=== PATIENT | female | born 1965 ===

== ENCOUNTER 2017-06-25 06:44 | Day surgery (SDC) | payer OTHER ==
[2017-06-24 14:19] VITALS: BMI 26.5
[2017-06-25] MEDS ORDERED: Lactated Ringer's 1,000 ML IV ONE ×3 (08:05→08:46)
[2017-06-25] MEDS ORDERED: cefOXitin IV 1 gm in Dextrose 1 GM/50 ML BAG IVPB ONE (08:07)
[2017-06-25] MEDS ORDERED: Labetalol 25mg/5ml Syringe IVP PRN (08:47)
[2017-06-25] MEDS ORDERED: HYDROmorphone 1 mg/ml ISec IVP PRN (08:47)
[2017-06-25 09:47] LABS: HEMOGLOBIN 11.2 g/dL (11.0-16.0); MEAN CELL VOLUME 78.5 fL (81.0-99.0); MEAN CORPUSCULAR HEMOGLOBIN 25.7 pg (27.0-31.0); MEAN CORPUSCULAR HGB CONC 32.7 g/dL (33.0-37.0); MEAN PLATELET VOLUME 9.5 fL (7.2-11.7); RBC 4.36 Mil/uL (3.80-5.20); RED CELL DISTRIBUTION WIDTH 15.3 % (11.5-14.5); WHITE BLOOD COUNT 7.2 K/uL (4.8-10.8)
[2017-06-25 10:10] LABS: ALB/GLOB RATIO 1.2 (1.0-2.1); ALBUMIN 3.3 g/dL (3.5-5.0); BLOOD UREA NITROGEN 10 mg/dL (7-17); GFR AFRICAN-AMERICAN > 60; GFR NON-AFRICAN AMERICAN > 60
[2017-06-25 10:11] LABS: ALT/SGPT 25 U/L (9-52); AST/SGOT 31 U/L (14-36); CALCIUM 8.2 mg/dl (8.6-10.4)
[2017-06-25 11:14] VITALS: RESP 16
[2017-06-25 12:22] VITALS: BP 157/79; PULSE 60; TEMP 97.6; O2SAT 99
--- NOTE | 2017-06-25 18:29 | PCM.SURG1 ---
Surgeon's Initial Post Op Note - Surgeon's Notes Surgeon: dr chavez Director Imaging: none Type of Anesthesia: General LMA Anesthesia Administered By: dr patterson Pre-Operative Diagnosis: 51 yr irrgular bleeding/fibroid uterus Operative Findings: see the op reort Post-Operative Diagnosis: sme Operation Performed: myasure/d&c, hysterscopy Specimen/Specimens Removed: ecc. emc. polyp Estimated Blood Loss: EBL {In ML}: 20 Blood Products Given: N/A Drains Used: No Drains Post-Op Condition: Good Date of Surgery/Procedure: 06/25/17 Time of Surgery/Procedure: 10:40
--- NOTE | 2017-06-26 05:11 | OP ---
PROCEDURE DATE: PREOPERATIVE DIAGNOSIS: A 51-year-old 2, para 2, with irregular menstrual periods and endometrial thickening, rule out fibroid. POSTOPERATIVE DIAGNOSIS: A 51-year-old 2, para 2, with irregular menstrual periods and endometrial thickening, rule out fibroid. SURGEON: Nael Stone MD ELECTRICAL TECHNOLOGY INSTRUCTOR: None. TYPE OF ANESTHESIA: General. ANESTHESIOLOGIST: Dr. Bell. COMPLICATIONS: None. PROCEDURE PERFORMED: D and C, hysteroscopy, and MyoSure. DEFICIT: 550 mL. DESCRIPTION OF PROCEDURE: After informed consent was obtained, the patient was brought to the operating room, placed on the table where general anesthesia was administered. When anesthesia was found to be sufficient, she was prepped and draped in normal sterile fashion. Examination of the uterus revealed that uterus to be anteverted and in 7 weeks size. Anterior lip of the cervix was grasped with a tenaculum. Gentle dilatation of the cervix was done. There was a small polyp in the lower part of the uterus. It was very hard to dilate, so the gentle dilation of the cervix was done. Then after that, it was found that the polypoid tissue in the uterus. ____ pictures were taken. After that MyoSure was used to remove the polypoid tissue,it was sent to Pathology. Then sharp curettage of uterus was done and ECC was done and sent to pathology too. After that, the tenaculum was taken out of the anterior lip of the cervix. Deficit was 550. The patient tolerated the procedure well. Lap, sponge, and instrument counts were correct x2. The patient observed in the . CBC and CMP were found within normal. The patient is to follow up with Dr. Stone, antibiotics or pursue any new medication and also will follow up in two weeks. Nael Stone MD
== END 2017-06-25 12:08 | disposition home or self-care (01) ==
LOC: C.SDS 06:44
PROVIDERS: ATTEND Obstetrics & Gynecology
DX: N84.0 Polyp of corpus uteri (principal); N92.0 Excessive and frequent menstruation with regular cycle; D25.0 Submucous leiomyoma of uterus
CPT/HCPCS: 36415; 58558; 80053; 85027; 88305; J7120

== ENCOUNTER 2017-09-29 20:22 | Emergency (ER) | payer OTHER ==
[2017-09-29 20:23] VITALS: BMI 26.5
[2017-09-29 20:42] VITALS: O2SAT 98
[2017-09-29 21:04] LABS: SQUAMOUS EPITHIAL < 1 /hpf (0-5); URINE BILIRUBIN NEGATIVE (NEGATIVE); URINE BLOOD NEGATIVE (NEGATIVE); URINE CLARITY Clear (Clear); URINE COLOR Colorless (YELLOW); URINE GLUCOSE (UA) NORMAL (Normal); URINE LEUKOCYTE ESTERASE NEG Leu/uL (Negative); URINE PROTEIN NEGATIVE (NEGATIVE); URINE UROBILINOGEN NORMAL mg/dL (0.2-1.0)
--- NOTE | 2017-09-29 21:11 | C.PDOC ---
History Of Present Illness 51 y/o female with Hx of Fibroid Uterus and UTI presents to ED for complaints of diffused abdominal pain that began two days ago. Patient also reports feeling "something bulging from umbilicus. Denies fever, chills, nausea, vomiting or any other physical complaints. no analgesia needed in er. Time Seen by Provider: 09/29/17 20:54 Chief Complaint (Nursing): Abdominal Pain History Per: Patient History/Exam Limitations: no limitations Onset/Duration Of Symptoms: Days (2) Current Symptoms Are (Timing): Still Present Location Of Pain/Discomfort: Diffuse Radiation Of Pain To:: None Associated Symptoms: denies: Fever, Chills, Nausea, Vomiting, Diarrhea, Urinary Symptoms Exacerbating Factors: None Alleviating Factors: None Last Bowel Movement: Today Recent travel outside of the [place]: No Abnormal Vaginal Bleeding: No Past Medical History Reviewed: Historical Data, Nursing Documentation, Vital Signs Vital Signs: Last Vital Signs Temp 98.6 F 09/29/17 23:59 Pulse 72 09/29/17 23:59 Resp 18 09/29/17 23:59 BP 137/77 09/29/17 23:59 Pulse Ox 98 09/29/17 23:59 - Medical History PMH: No Chronic Diseases Denies: Chronic Kidney Disease Surgical History: No Surg Hx Family History: States: No Known Family Hx - Social History Hx Alcohol Use: No Hx Substance Use: No Review Of Systems Except As Marked, All Systems Reviewed And Found Negative. Gastrointestinal: Positive for: Abdominal Pain (Diffuse ) Physical Exam - Physical Exam Appears: Well, Non-toxic, No Acute Distress Skin: Normal Color, Warm, Dry Head: Atraumatic, Normacephalic Eye(s): bilateral: Normal Inspection, PERRL, EOMI Oral Mucosa: Moist Neck: Supple Chest: Symmetrical Cardiovascular: Rhythm Regular Respiratory: Normal Breath Sounds, No Decreased Breath Sounds, No Rales, No Rhonchi, No Wheezing Gastrointestinal/Abdominal: Soft, Tenderness (Mild, non focal ), Hernia ( Reproducible umbilical ) Extremity: Normal ROM, No Deformity Extremity: Bilateral: Atraumatic, Normal Color And Temperature, Normal ROM Neurological/Psych: Oriented x3, Normal Speech (Speaking in full sentences ), Other (No focal deficits ) Gait: Steady ED Course And Treatment - Laboratory Results Result Diagrams: 09/29/17 21:10 09/29/17 21:10 O2 Sat by Pulse Oximetry: 98 (RA) Pulse Ox Interpretation: Normal Medical Decision Making Medical Decision Making: Ordered Blood work and urinalysis. ct shows cyst and fibroid. offered pt ultrasound in er. declines as she has small kids at home. case discussed with pt obgyn dr stone. pt reports she had us [address] stone requests outpt fu. pt instructed to return to er with any worsneing symptoms or concerns. no analgesia needed iner, no leukoctyosis, pt comfortable. torsion unlikely, but pt refuses us in er, needs to get home to small kids. Disposition - Disposition Referrals: Nael Stone MD [Staff Provider] - Disposition: HOME/ ROUTINE Disposition Time: 12:00 Condition: STABLE Additional Instructions: please follow up with your doctor return to er with worsening symptoms or concerns. you will need further workup and managment as an outpatient. Instructions: Ovarian Cysts, Acute Abdomen (Belly Pain) Forms: [employer] (Macedonian) - Clinical Impression Clinical Impression: Ovarian cyst, Abdominal pain - Scribe Statement The provider has reviewed the documentation as recorded by the Scribe Alexx Oscar All medical record entries made by the Scribe were at my direction and personally dictated by me. I have reviewed the chart and agree that the record accurately reflects my personal performance of the history, physical exam, medical decision making, and the department course for this patient. I have also personally directed, reviewed, and agree with the discharge instructions and disposition.
[2017-09-29 21:17] LABS: BASO # 0.1 K/uL (0.0-0.2); BASO % 0.9 % (0.0-2.0); EOS # 0.1 K/uL (0.0-0.7); EOS % 1.2 % (0.0-4.0); HEMOGLOBIN 11.5 g/dL (11.0-16.0); LYMPH # 1.4 K/uL (1.0-4.3); LYMPH % 16.4 % (20.0-40.0); MEAN CELL VOLUME 74.9 fL (81.0-99.0); MEAN CORPUSCULAR HEMOGLOBIN 24.7 pg (27.0-31.0); MEAN PLATELET VOLUME 9.1 fL (7.2-11.7); MONO # 0.7 K/uL (0.0-0.8); MONO % 8.6 % (0.0-10.0); NEUT % 72.9 % (50.0-75.0); NRBC % 0.1 % (0.0-2.0); RBC 4.65 Mil/uL (3.80-5.20); RED CELL DISTRIBUTION WIDTH 14.8 % (11.5-14.5); WHITE BLOOD COUNT 8.2 K/uL (4.8-10.8)
[2017-09-29 21:22] LABS: INR 1.2; PROTHROMBIN TIME 13.2 SECONDS (9.7-12.2)
[2017-09-29 21:29] LABS: ALB/GLOB RATIO 1.5 (1.0-2.1); ALBUMIN 4.3 g/dL (3.5-5.0); ALT/SGPT 30 U/L (9-52); AST/SGOT 39 U/L (14-36); BLOOD UREA NITROGEN 9 mg/dL (7-17); CALCIUM 9.5 mg/dl (8.6-10.4); GFR AFRICAN-AMERICAN > 60; GFR NON-AFRICAN AMERICAN > 60; LIPASE 134 U/L (23-300)
[2017-09-29] MEDS ORDERED: Iodixanol 320 MG/ML 100 ML BOTTLE IV ONE (21:40)
[2017-09-30 00:09] VITALS: BP 137/77; PULSE 72; RESP 18; TEMP 98.6
--- NOTE | 2017-09-30 10:06 | CT ---
Date of service: 09/29/2017 PROCEDURE: CT Abdomen and Pelvis with contrast HISTORY: abd pain COMPARISON: Comparison is made with the previous CT of the pelvis dated 01/15/2017 TECHNIQUE: Contrast dose: 100 mL Visipaque 320. Axial and reformatted coronal and sagittal CT images of the abdomen and pelvis were obtained after IV contrast administration. Radiation dose: Total exam DLP = 379.65 mGy-cm. This CT exam was performed using one or more of the following dose reduction techniques: Automated exposure control, adjustment of the mA and/or kV according to patient size, and/or use of iterative reconstruction technique. FINDINGS: LOWER THORAX: Unremarkable. LIVER: Unremarkable. No gross lesion or ductal dilatation. GALLBLADDER AND BILE DUCTS: Unremarkable. PANCREAS: Unremarkable. No gross lesion or ductal dilatation. SPLEEN: Unremarkable. ADRENALS: Unremarkable. No mass. KIDNEYS AND URETERS: Unremarkable. No hydronephrosis. No solid mass. VASCULATURE: Unremarkable. No aortic aneurysm. BOWEL: [id number] small bowel wall thickening is noted suggestive of enteritis. No evidence of high-grade bowel obstruction. Mild constipation is noted. APPENDIX: No evidence of appendicitis. PERITONEUM: There is a small amount of free fluid in the abdomen and pelvis. LYMPH NODES: Unremarkable. No enlarged lymph nodes. BLADDER: The urinary bladder is displaced inferiorly by enlarged uterus. REPRODUCTIVE: Interval significant increase in the size of the uterus since the previous study dated 01/15/2017. There is lobulated soft tissue structures noted at the superior portion of the uterus may represent fibroid versus neoplasm. There is also cystic structures in the right aspect of the pelvis cannot be from the soft tissue lesions at the midline upper pelvis. The possibility of neoplasm should be considered. Further assessment is recommended. BONES: No acute fracture. OTHER FINDINGS: There is a small fat containing umbilical hernia noted. IMPRESSION: Diffuse moderate small bowel wall thickening suggestive of enteritis. The differential consideration includes infection or inflammatory enteritis. No evidence of high-grade bowel obstruction. Interval appearance of heterogeneous soft tissue and cystic structure at the mid and upper pelvis anterior to the uterus. The possibility of neoplasm should be excluded. Further assessment is recommended. The differential consideration includes less likely pedunculated fibroid with new degeneration. These findings are new comparing to the previous CT of the pelvis dated 01/15/2017. Small ascites in the abdomen and pelvis. Preliminary report was submitted by [facility]. Additional findings described above.
== END 2017-09-30 00:09 | disposition home or self-care (01) ==
LOC: C.ER 20:22
DX: R10.9 Unspecified abdominal pain (principal); N83.201 Unspecified ovarian cyst, right side; D25.9 Leiomyoma of uterus, unspecified
CPT/HCPCS: 74177; 80053; 81001; 83690; 85025; 85610; 85730; 99284; Q9967

== ENCOUNTER 2018-07-20 12:53 | Emergency (ER) | payer OTHER ==
[2018-07-20 12:54] VITALS: BMI 26.5
[2018-07-20 13:02] VITALS: BP 138/89; PULSE 86; RESP 18; TEMP 98.4; O2SAT 98
--- NOTE | 2018-07-20 13:42 | C.PDOC ---
History Of Present Illness 52 y/o female,w/PMhx of ovarian cancer, presents to the ER complaining of pain and swelling to the left lateral ankle which began yesterday. Patient states that she twisted her ankle. Patient reports that she has pain with walking. Denies having weakness and numbness. Time Seen by Provider: 07/20/18 13:06 Chief Complaint (Nursing): Lower Extremity Problem/Injury History Per: Patient History/Exam Limitations: no limitations Onset/Duration Of Symptoms: Days Current Symptoms Are (Timing): Still Present Severity: Moderate Past Medical History Reviewed: Historical Data, Nursing Documentation, Vital Signs Vital Signs: Last Vital Signs Temp 98.4 F 07/20/18 12:57 Pulse 86 07/20/18 12:57 Resp 18 07/20/18 12:57 BP 138/89 07/20/18 12:57 Pulse Ox 98 07/20/18 12:57 - Medical History PMH: No Chronic Diseases Denies: Chronic Kidney Disease Other Surgeries: Hx of surgeries Family History: States: No Known Family Hx - Social History Hx Alcohol Use: No Hx Substance Use: No Review Of Systems Except As Marked, All Systems Reviewed And Found Negative. Musculoskeletal: Positive for: Other (left ankle pain) Neurological: Negative for: Weakness, Numbness Physical Exam - Physical Exam Appears: Non-toxic, No Acute Distress Skin: Normal Color, Warm, Dry, Ecchymosis (ecchymosis to left lateral malleolus) Head: Atraumatic, Normacephalic Eye(s): bilateral: Normal Inspection Nose: Normal Oral Mucosa: Moist Neck: Supple Chest: Symmetrical Extremity: Normal ROM, Swelling (swelling to left lateral malleolus) Neurological/Psych: Oriented x3, Normal Speech ED Course And Treatment O2 Sat by Pulse Oximetry: 98 (RA) Pulse Ox Interpretation: Normal - Other Rad L ankle X-Ray: Interpreted by Me (+ distal fib fx, no displ) Medical Decision Making Medical Decision Making: distal fib fx, twisted ankle yesterday splint, crutches, opt f/u PRN Disposition Doctor Will See Patient In The: Office Counseled Patient/Family Regarding: Studies Performed, Diagnosis - Disposition Referrals: [facility] [Outside] [facility] [Outside] [facility] [Outside] [facility] [Outside] Montrell Alejandro MD [Staff Provider] - Disposition: HOME/ ROUTINE Disposition Time: 13:43 Condition: GOOD Additional Instructions: small distal fibular fx no displacement posterior splint and crutch walking outpatient follow-up with Dr. Alejandro- Orthopedics Manager Transportation ice packs 1/2 hour per hour, nothing hot motrin/Advil 400-600 mg every 6 hours as needed Tramadol 50 mg (narcotic pain reliever) 1 tab every 6 hours as needed for more severe pain Prescriptions: traMADol [Ultram] 50 mg PO Q6H PRN #10 tab PRN Reason: pain Instructions: Ankle Fracture Forms: [employer] (C[place] Ver[place]an) - Clinical Impression Clinical Impression: Ankle fracture, left - Scribe Statement The provider has reviewed the documentation as recorded by the Kathiibe Mehreen Membreno Provider Attestation: All medical record entries made by the Scribe were at my direction and personally dictated by me. I have reviewed the chart and agree that the record accurately reflects my personal performance of the history, physical exam, medical decision making, and the department course for this patient. I have also personally directed, reviewed, and agree with the discharge instructions and disposition.
--- NOTE | 2018-07-20 14:11 | RAD ---
Date of service: 07/20/2018 PROCEDURE: Left Ankle Radiographs. HISTORY: L lateral ankle- twisted yesterday COMPARISON: None available. TECHNIQUE: 3 views obtained. FINDINGS: BONES: There is an acute transverse nondisplaced fracture in the lateral malleolus. Bone alignment is normal. There is mild periarticular bone demineralization. There is a prominent plantar calcaneal spur. JOINTS: Small joint effusion. No osteoarthritis. Ankle mortise maintained. Talar dome intact SOFT TISSUES: Moderate periarticular soft tissue swelling. OTHER FINDINGS: None. IMPRESSION: Acute transverse nondisplaced fracture in the lateral malleolus, small joint effusion and moderate periarticular soft tissue swelling. The final report is tagged to the PA review folder.
== END 2018-07-20 14:43 | disposition home or self-care (01) ==
LOC: C.ER 12:53
DX: S82.65XA Nondisplaced fracture of lateral malleolus of left fibula, initial encounter for closed fracture (principal); X50.1XXA Overexertion from prolonged static or awkward postures, initial encounter
CPT/HCPCS: 29515; 73610; 97116; 97161; 99285; G8978; G8979; G8980